=== PATIENT | female | born 1965 | race Caucasian/White ===

== ENCOUNTER 2019-09-23 08:16 | Outpatient (CLI) | payer MEDICARE, MEDICAID, SELFPAY ==
--- NOTE | ~2019-09-23 | NM_ITS ---
EXAMINATION: NM lucy stress w perfusion DATE: 09/23/2019 12:19 INDICATION: Dyspnea on exertion. TECHNIQUE: Rest images were obtained following intravenous administration of 10.3 mCi Tc99m tetrofosm in (Myoview). The patient was infused intravenously with Lexiscan (regadenoson). Then, 31.5 mCi Tc99m tetrofosmin (Myoview) was administered intravenously, and stress images were obtained. Data was dior nstructed into short axis and horizontal and vertical long axis SPECT images. Gated SPECT images were also obtained. COMPARISON: Myocardial perfusion imaging 05/21/2014 FINDINGS: There is no definite reversible or fixed perfusion abnormality to suggest ischemia or infar ction. There is no segmental wall motion abnormality. Left ventricular ejection fraction measures > 70%. IMPRESSION: 1. No definite ischemia or infarct. 2. Normal left ventricular ejection fraction measuring >70%. Reviewed, dictated and finalized at location A.
--- NOTE | 2019-09-23 08:35 | ECHO_ITS ---
Patient Info Name: Aundrea Guerrero Age: 54 years : 1965 Gender: Female Ht: 67 in Wt: 200 lbs BSA: 2.10 m2 HR: 77 bpm BP: 127 / 86 mmHg Technical Quality: Fair Exam Date: 09/23/2019 8:48 AM Exam Location: [facility] Pulmonary Patient Status: Outpatient Admit Date: 09/23/2019 Staff Ordering Physician: Steve Cabral DO Manager Gyn: Adrianne Siegel RDCS Attending Provider: Steve Cabral DO Referring Physician: Misha ANAYA; Exam Type: CA echo doppler color flow Study Info Indications R06.00 - Dyspnea, unspecified Complete two-dimensional, color flow and Doppler transthoracic echocardiogram is performed. Summary 1. Left ventricular chamber dimension is normal. 2. Left ventricular systolic function is normal, estimated at 60-65%. 3. The left ventricular diastolic function is grade I diastolic dysfunction. 4. E/e' 11 is mildly elevated. 5. Global longitudinal strain is mildly abnormal at -16.6%. 6. There is trace aortic valve regurgitation. 7. Mild pulmonary hypertension, estimated pulmonary arterial systolic pressure is 40 mmHg. Left Ventricle E/e' 11 is mildly elevated. Global longitudinal strain is mildly abnormal at -16.6%. Left ventricular chamber dimension is normal. Left ventricular systolic function is normal, estimated at 60-65%. The left ventricular diastolic function is grade I diastolic dysfunction. Right Ventricle Right ventricular chamber dimension is normal. Right ventricular systolic function is normal. Left Atria Left atrial chamber dimension is normal. Right Atria Right atrial chamber dimension is normal. Aortic Valve The aortic valve is trileaflet. There is no aortic valve stenosis. There is trace aortic valve regurgitation. Pulmonic Valve There is no pulmonic regurgitation. Mitral Valve There is no mitral valve stenosis. There is no mitral valve regurgitation. Tricuspid Valve There is no tricuspid valve regurgitation. Mild pulmonary hypertension, estimated pulmonary arterial systolic pressure is 40 mmHg. Pericardium/Pleural There is no pericardial effusion. Inferior Vena Cava Normal inferior vena cava with >50% collapse upon inspiration consistent with normal right atrial pressure, 5 mmHg. Aorta The aortic root size at the sinus of Valsalva is normal. Left Ventricular Outflow Tract Name Value Normal LVOT 2D LVOT Diameter 2.0 cm LVOT Doppler LVOT Peak Gradient 4 mmHg LVOT Mean Gradient 2 mmHg LVOT VTI 22 cm LVOT VTI/AV VTI Ratio 0.8 LVOT Stroke Volume 67 ml LVOT CO 4.8 l/min LVOT CI 2.3 l/min/m2 Pulmonic Valve Name Value Normal RVOT Doppler RVOT Peak Gradient 2 mmHg
--- NOTE | 2019-09-23 08:48 | EST_ITS ---
Patient Info Name: Aundrea Guerrero Age: 54 years : 1965 Gender: Female Ht: 67 in Wt: 200 lbs BSA: 2.10 m2 Exam Date: 09/23/2019 10:52 AM Exam Location: [facility] Stress Patient Status: Outpatient Admit Date: 09/23/2019 Staff Ordering Physician: Steve Cabral DO Attending Provider: Steve Cabral DO Exercise Technologist: Adrianne Siegel RDCS Exercise Physician: Steve Cabral DO Exam Type: CA stress lucy w NM Study Info Indications R06.00 - Dyspnea, unspecified A regadenoson stress test was performed. Summary 1. 1. Negative lexiscan stress test for ischemic ST changes by ECG criteria. 2. 2. Stable hemodynamics throughout the test. 3. 3. Nuclear scan to follow and will be reported separately. Please correlate with it. 4. 4. Patient informed of the above results. Protocol: Lexiscan Stress ECG Details Stage: REST Duration (min): 5 min : 37 sec HR (bpm): 70 SBP (mmHg): 115 DBP (mmHg): 71 Stage: REST Duration (min): 11 min : 12 sec HR (bpm): 72 SBP (mmHg): 115 DBP (mmHg): 71 Stage: STAGE 1 Duration (min): 0 min : 59 sec HR (bpm): 102 SBP (mmHg): 105 DBP (mmHg): 68 Stage: RECOVERY Duration (min): 1 min : 0 sec HR (bpm): 94 SBP (mmHg): 113 DBP (mmHg): 68 Stage: RECOVERY Duration (min): 2 min : 0 sec HR (bpm): 87 SBP (mmHg): 113 DBP (mmHg): 68 Stage: RECOVERY Duration (min): 3 min : 0 sec HR (bpm): 82 SBP (mmHg): 105 DBP (mmHg): 67 Stage: RECOVERY Duration (min): 4 min : 0 sec HR (bpm): 87 SBP (mmHg): 105 DBP (mmHg): 67 Stage: RECOVERY Duration (min): 5 min : 0 sec HR (bpm): 83 SBP (mmHg): 107 DBP (mmHg): 66 Stage: RECOVERY Duration (min): 6 min : 0 sec HR (bpm): 84 SBP (mmHg): 107 DBP (mmHg): 66 Stage: RECOVERY Duration (min): 6 min : 45 sec HR (bpm): 83 SBP (mmHg): 116 DBP (mmHg): 65 Rest HR: 72 bpm Peak HR: 102 bpm Rest Sys BP: 115 mmHg Peak Sys BP: 116 mmHg Max Pred HR: 164 bpm % Max Pred HR: 62 % Target HR: 139 bpm Max RPP: 11,832 bpm*mmHg Termination Reason: Completed protocol Cardiac Symptoms: Shortness of breath Total Time: 1 min : 0 sec Rest Ruiz BP: 71 mmHg Peak Ruiz BP: 65 mmHg Total Dose: 0.4 mg Resting ECG Sinus rhythm. Stress ECG No ST changes. Arrhythmias None. Report Signatures
== END 2019-09-23 08:17 | disposition home or self-care (01) ==
PROVIDERS: PCP Emergency Medicine; Visit Provider Internal Medicine Cardiovascular Disease
DX: R06.09 Other forms of dyspnea (principal)
CPT/HCPCS: 78452; 93017; 93306; A9502; J2785

== ENCOUNTER 2021-06-01 11:01 | Outpatient (CLI) | payer MEDICARE, MEDICAID, SELFPAY ==
--- NOTE | ~2021-06-01 | XR_ITS ---
EXAMINATION: XR knee LT 3V, XR knee RT 3V DATE: 06/01/2021 11:26 INDICATION: Chronic bilateral knee pain TECHNIQUE: 1. AP, lateral and sunrise views of the left knee were obtained. 2. AP, lateral and sunrise views of the right knee were obtained COMPARISON: None. FINDINGS: Right total knee arthroplasty without patellar resurfacing which appears well seated in near-anatomic alignment. No periprosthetic lucency to suggest loosening. Normal alignment at the left knee. No fra cture. Mild tricompartmental osteoarthritis at the right knee with small marginal osteophytes in all 3 compartments and mild joint space narrowing the medial compartment. Small enthesophytes at the prox imal poles of the left and right patellae. Soft tissues are unremarkable at both knees. No knee joint effusions. IMPRESSION: 1. Mild tricompartmental osteoarthritis at the left knee. 2. Right total knee arthroplasty. 3. No acute osseous abnormality or knee joint effusion at either knee. Reviewed, dictated and finalized at location A. IMPRESSION: 1. Mild tricompartmental osteoarthritis at the left knee. 2. Right total knee arthroplasty. 3. No acute osseous abnormality or knee joint effusion at either knee.
--- NOTE | ~2021-06-01 | XR_ITS ---
XR lumbar spine 6V w bending DATE: 06/01/2021 11:27 INDICATION: Lumbago, left sciatica TECHNIQUE: AP, lateral, bilateral oblique views. Flexion and extension lateral views. COMPARISON: None FINDINGS: There is levoscoliosis or the thoracolumbar spine. There is degenerative spurring of the lower thoracic spine. There is mild degenerative spurring of the lumbar spine. Lumbar and lumbosacral interspaces are well preserved. No fracture or bone destruction. The lumbar pedicles are intact. The sacroiliac joints are normal. IMPRESSION: Mild degenerative change Reviewed, dictated and finalized at location A. IMPRESSION: Mild degenerative change
--- NOTE | ~2021-06-01 | CT_ITS ---
EXAMINATION: CT lung screening DATE: 06/01/2021 11:30 INDICATION: Personal history of nicotine dependence TECHNIQUE: Computed tomography (CT) of the chest was performed without intravenous contrast. The dose -length product was 258.59 mGy-cm. Automated exposure control and iterative reconstruction technique were employed. COMPARISON: Chest dated 05/26/2015 FINDINGS: No thoracic lymphadenopathy. No significant pleural or pericardial effusion. Small hiatal h ernia. There are calcified granulomas of the spleen. There are cholecystectomy clips. There are scatt ered small miliary nodules measuring 2-3 mm predominantly affecting the upper lobes. No pneumothorax. No endobronchial lesions. Mild emphysema. Mild thoracic spondylosis. No acute osseous abnormality. IMPRESSION: 1. Lung-RADS category 2: Benign appearance or behavior. Continue annual screening with noncontrast lo w-dose chest CT in 12 months. Reviewed, dictated and finalized at location B. IMPRESSION: 1. Lung-RADS category 2: Benign appearance or behavior. Continue annual screeni ng with noncontrast low-dose chest CT in 12 months.
== END 2021-06-01 11:02 | disposition home or self-care (01) ==
PROVIDERS: PCP Internal Medicine; Visit Provider Internal Medicine
DX: Z87.891 Personal history of nicotine dependence (principal); M25.569 Pain in unspecified knee; G89.29 Other chronic pain; M54.41 Lumbago with sciatica, right side; M54.42 Lumbago with sciatica, left side; M51.36 Other intervertebral disc degeneration, lumbar region; M17.12 Unilateral primary osteoarthritis, left knee
CPT/HCPCS: 71271; 72114; 73562

== ENCOUNTER 2021-06-09 12:50 | Outpatient (CLI) | payer MEDICARE, MEDICAID, SELFPAY ==
[2021-06-09 13:18] LABS: Basophils Absolute Auto 0.1 K/mm3 (0.0-0.1); Basophils Percent Auto 0.7 % (0.2-1.2); Eosinophils Absolute Auto 0.7 K/mm3 (0-0.3); Eosinophils Percent Auto 7.6 % (0-4.4); Hematocrit 38.3 % (37.0-47.0); Hemoglobin 12.6 g/dL (12.0-15.0); Immature Granulocyte Absolute 0.03 K/mm3 (0.00-0.031); Immature Granulocyte Percent A 0.3 % (0-0.5); Lymphocytes Absolute Auto 2.94 K/mm3 (0.9-3.2); Lymphocytes Percent Auto 33.8 % (18.3-44.2); Mean Corpuscular HGB Conc 32.9 g/dl (32-36); Mean Corpuscular Hemoglobin 30.9 pg (26-34); Mean Corpuscular Volume 93.9 fl (80-100); Mean Platelet Volume 9.2 fl (7.4-10.4); Monocytes Absolute Auto 0.6 K/mm3 (0.1-0.6); Monocytes Percent Auto 7.1 % (2.6-8.5); Neutrophils Absolute Auto 4.4 K/mm3 (1.3-6.7); Neutrophils Percent Auto 50.5 % (45.5-73.1); Platelet Count Result 299 k/mm3 (150-375); Red Blood Count 4.08 M/mm3 (4.2-5.4); Red Cell Distribution Width 13.2 % (11.5-14.5); White Blood Count 8.7 K/mm3 (4.5-10.0)
[2021-06-09 13:29] LABS: Alanine Aminotransferase 61 U/L (4-35); Albumin Level 4.4 g/dL (3.5-5.1); Alkaline Phosphatase 131 U/L (38-126); Anion Gap 6 mmol/L (8-16); Aspartate Amino Transferase 48 U/L (14-36); Bilirubin,Total < 0.1 mg/dL (0.2-1.3); Blood Urea Nitrogen 10 mg/dL (7-17); Calcium 8.9 mg/dL (8.4-10.2); Carbon Dioxide 28 mmol/L (22-30); Chloride 101 mmol/L (98-107); Cholesterol 175 mg/dL (0-200); Estimated Glomerular Filt Rate > 60; Glucose 133 mg/dL (65-110); HDL Direct 39 mg/dL; Potassium 4.1 mmol/L (3.4-5.0); Sodium 135 mmol/L (137-145); Triglycerides 275 mg/dL (<150)
[2021-06-09 13:32] LABS: Creatinine Urine 48.1 mg/dL
[2021-06-09 13:40] LABS: LDL Cholesterol Direct 96 mg/dL
[2021-06-09 14:19] LABS: Vitamin D 25 Hydroxy 39.5 ng/mL
[2021-06-09 14:43] LABS: Microalbumin Urine Random < 6.0 mg/L (0-16.7)
[2021-06-09 14:44] LABS: MALB Creatinine Ratio < 12.5 mg/g (0-30)
[2021-06-09 16:15] LABS: Hemoglobin A1C 5.9 % (<5.7)
== END 2021-06-09 12:51 | disposition home or self-care (01) ==
LOC: ANHLAB 13:01
PROVIDERS: PCP Internal Medicine; Visit Provider Internal Medicine
DX: E55.9 Vitamin D deficiency, unspecified (principal); J43.9 Emphysema, unspecified; E78.5 Hyperlipidemia, unspecified; Z51.81 Encounter for therapeutic drug level monitoring; Z79.899 Other long term (current) drug therapy
CPT/HCPCS: 36415; 80053; 80061; 82043; 82306; 83036; 84443; 85025